=== PATIENT | male | born 1945 | race Caucasian/White ===

== ENCOUNTER → 2021-07-31 | Day surgery (SDC) | payer MEDICARE, OTHER ==
[~2021-07-31] MED LIST: ATORVASTATIN CA20 MG PO; BUPIVACAINE HCL 0.5% INJ 30 ML VIAL INJ ONE; CALCIUM PO; CILOSTAZOL100 MG PO; CIMZIA400 MG IM; DEXAMETHASONE SOD PHOS INJ 4 MG/ML SDV ONE; FENTANYL CITRATE/PF 100MCG/2 ML INJ ONE; FOLIC ACID0.4 MG PO; GLUCOSAMINE1000 MG PO; LIDOCAINE HCL 2% LOCAL INJ 5 ML SDV VIAL INJ ONE; LOSARTAN POTAS100 MG PO; METHOTREXATE2.5 MG PO; NABUMETONE500 MG PO; ONDANSETRON HCL INJ 2MG/ML 2ML 2 MG/ML VIAL ONE; PHENYLEPHRINE HCL 1% 10 MG/ML VIAL ONE; POVIDONE IODINE 0.05% 0.05 % ML PO ONE; PREDNISONE5 MG PO; PROPOFOL IV EMULSION 10 MG/ML 20 ML VIAL ONE; SEVOFLURANE INHAL SOLN 250 ML PEN BTL ONE; SODIUM CHLORIDE 0.9% 50ML 50 ML ONE; SULFASALAZINE500 MG PO; TYLENOL EXTRA500 MG PO
[2021-07-31 07:57] LABS: BASOPHILS # (AUTO) 0.1 (0.0-0.1); BASOPHILS % 0.7 % (0.0-1.0); EOSINOPHILS # (AUTO) 0.3 (0.0-0.4); EOSINOPHILS % 3.3 % (0.0-6.0); HEMATOCRIT 43.6 % (38.2-49.6); HEMOGLOBIN 13.7 g/dL (14.0-18.0); LYMPHOCYTES # (AUTO) 1.5 (1.0-3.2); LYMPHOCYTES % 19.6 % (18.0-39.1); MEAN CORPUSCULAR HEMOGLOBIN 32.9 pg (28-32); MEAN CORPUSCULAR HGB CONC 31.4 g/dL (31-35); MEAN CORPUSCULAR VOLUME 104.6 fL (81-99); MONOCYTES # (AUTO) 1.1 (0.2-0.8); MONOCYTES % 14.4 % (4.4-11.3); NEUTROPHILS # (AUTO) 4.7 (2.1-6.9); NEUTROPHILS % 61.6 % (38.7-80.0); PLATELET COUNT 257 x10e3/uL (140-360); RED BLOOD COUNT 4.17 x10e6/uL (4.3-5.7); RED CELL DISTRIBUTION WIDTH 14.2 % (11.7-14.4)
[2021-07-31 13:30] VITALS: BP 149/71
== END | disposition home or self-care (01) ==
LOC: OR 06:59
PROVIDERS: ATTEND Specialist
DX: G56.21 Lesion of ulnar nerve, right upper limb (principal); M19.021 Primary osteoarthritis, right elbow; M47.9 Spondylosis, unspecified; I10 Essential (primary) hypertension; E78.5 Hyperlipidemia, unspecified; K28.9 Gastrojejunal ulcer, unspecified as acute or chronic, without hemorrhage or perforation; K57.90 Diverticulosis of intestine, part unspecified, without perforation or abscess without bleeding; Z20.822 Contact with and (suspected) exposure to COVID-19; Z79.899 Other long term (current) drug therapy; Z85.46 Personal history of malignant neoplasm of prostate; Z86.73 Personal history of transient ischemic attack (TIA), and cerebral infarction without residual deficits
CPT/HCPCS: 36415; 64718; 71046; 85025; 93005; J0690; J3010; U0002; J1100; J2001; J2370; J2405